=== PATIENT | female | born 1965 | race Caucasian/White ===

== ENCOUNTER 2016-11-08 00:29 | Emergency (ER) | payer MEDICAID, OTHER ==
[~2016-11-08] VITALS: Ht 157.5 cm; Wt 72.6 kg
[~2016-11-08 00:29] MED LIST: ALBU-136 IH; HYDR2TAB44 PO; LEVO0.083 PO
[2016-11-08 00:33] VITALS: BP 171/112
--- NOTE | 2016-11-08 00:40 | NUR ---
PATIENT PRESENTS TO ED WITH DIFFICULTY BREATHING X1 DAY . PT STATES BREATHING TREATMENT AT HOME NOT EFFECTIVE, DENIES N/V/D; SKIN IS PINK/WARM/DRY; AAOX4 WITH EVEN AND STEADY GAIT;STIDOR LUNG SOUND SAILAJA. HR EVEN AND REGULAR, ELEVATED BP NOTED; DENIES COUGHT, DENIES PAIN; PATIENT POSITIONED FOR COMFORT; HOB ELEVATED; BEDRAILS UP X2; BED DOWN. ER MD MADE AWARE OF PT STATUS.
--- NOTE | 2016-11-08 00:53 | NUR ---
PT TAKEN TO OF3
--- NOTE | 2016-11-08 01:09 | NUR ---
Dr. Lockwood evaluating patient at bedside.
[2016-11-08] MEDS ORDERED: methylPREDNISolone SS 125 MG/2 ML VIAL IVP ONE (01:15)
[2016-11-08] MEDS ORDERED: ALBUTEROL SULFATE/IPRATROPIU 3 ML SOL IH ONE (01:25)
--- NOTE | 2016-11-08 01:28 | NUR ---
PT TAKEN TO XRAY
--- NOTE | 2016-11-08 01:28 | NUR ---
PT OFF UNITS VIA WHEELCHAIR FOR CHEST X-RAY.
--- NOTE | 2016-11-08 01:38 | NUR ---
PT RETURN FROM XRAY
[2016-11-08 01:40] LABS: BASOPHILS # (AUTO) 0.5 K/uL (0.00-0.22); BASOPHILS % (AUTO) 4.3 % (0.0-2.0); EOSINOPHILS # (AUTO) 0.1 K/uL (0-0.4); HEMATOCRIT 35.1 % (36-48); HEMOGLOBIN 11.8 g/dL (12.0-16.0); LYMPHOCYTES # (AUTO) 1.5 K/uL (2.5-16.5); LYMPHOCYTES % (AUTO) 12.9 % (20.5-51.1); MEAN CORPUSCULAR HEMOGLOBIN 32 pg (27-31); MEAN CORPUSCULAR HGB CONC 34 g/dL (33-37); MEAN CORPUSCULAR VOLUME 94 fL (80-94); MONOCYTES # (AUTO) 0.6 K/uL (0.8-1.0); MONOCYTES % (AUTO) 4.8 % (1.7-9.3); NEUTROPHILS # (AUTO) 9.2 K/uL (1.8-7.7); PLATELET COUNT (AUTO) 268 K/uL (140-450); RED BLOOD CELL COUNT(AUTO) 3.71 MIL/uL (4.20-5.40); RED CELL DISTRIBUTION WIDTH 12.8 % (11.6-13.7); WHITE BLOOD COUNT (AUTO) 11.9 K/uL (4.8-10.8)
[2016-11-08 01:48] LABS: ALBUMIN 3.7 g/dL (3.4-5.0); ANION GAP 14.1 (8-16); CALCIUM 8.9 mg/dL (8.5-10.1); CARBON DIOXIDE 25.5 mmol/L (21-32); CREATININE 0.7 mg/dL (0.6-1.3); POTASSIUM 3.6 mmol/L (3.5-5.1); TOTAL BILIRUBIN 0.4 mg/dL (0.0-1.0)
--- NOTE | 2016-11-08 02:04 | NUR ---
RT WITH PATIENT
--- NOTE | 2016-11-08 02:17 | NUR ---
PT MOVED TO BED 8
[2016-11-08 02:26] LABS: APPEARANCE,URINE CLEAR (CLEAR); BILIRUBIN,URINE NEGATIVE (NEGATIVE); BLOOD, URINE TRACE-I (NEGATIVE); COLOR,URINE YELLOW (YELLOW); LEUKOCYTE ESTERASE ,URINE NEGATIVE (NEGATIVE); NITRITE, URINE NEGATIVE (NEGATIVE); PROTEIN,URINE NEGATIVE (NEGATIVE); UGLUCOSE NEGATIVE (NEGATIVE); UROBILINOGEN,URINE 0.2 EU/dL (0.2 - 1)
[2016-11-08 02:36] LABS: BACTERIA,URINE FEW /HPF (None Seen); RBC,URINE 0-5 (RARE) /HPF (0-5); SQUAMOUS EPITHELIAL CELL,UR 0-3 (FEW) /LPF (0-3 (FEW)); WBC,URINE 0-5 (RARE) /HPF (0-5)
--- NOTE | 2016-11-08 03:40 | NUR ---
IV removed, catheter intact and site benign. Applied folded 4x4 gauze and tape to stop bleeding.
[2016-11-08 03:48] VITALS: BP 137/89
--- NOTE | 2016-11-08 03:48 | NUR ---
Patient discharged with v/s stable. Written and verbal after care instructions given and explained. Patient alert, oriented and verbalized understanding of instructions. Ambulatory with steady gait. All questions addressed prior to discharge. ID band removed. Patient advised to follow up with PMD. Rx of AUGMENTIN 875MG given. Patient educated on indication of medication including possible reaction and side effects. Opportunity to ask questions provided and answered.
== END 2016-11-08 03:48 | disposition home or self-care (01) ==
LOC: MED 00:29
DX: J04.0 Acute laryngitis (principal); J45.909 Unspecified asthma, uncomplicated; Z85.51 Personal history of malignant neoplasm of bladder; Z85.43 Personal history of malignant neoplasm of ovary; Z88.6 Allergy status to analgesic agent; Z88.5 Allergy status to narcotic agent
CPT/HCPCS: 36415; 71010; 80053; 81001; 81025; 84484; 85025; 93005; 94640; 96374; 99285; J2930; J7620; Q0092

== ENCOUNTER 2016-11-09 20:54 | Emergency (ER) | payer MEDICAID ==
[~2016-11-09] VITALS: Ht 157.5 cm; Wt 71.2 kg
[2016-11-09 21:04] VITALS: BP 159/99
--- NOTE | 2016-11-09 21:48 | NUR ---
TO ER BED 8
--- NOTE | 2016-11-09 21:49 | NUR ---
APATIENT PRESENTS TO ED WITH C/O OF HIGH BLOOD PRESSURE AND AUDIBLE WHEEZING BILAT; PT WAS HERE AT [facility] X 2 DAYS AGO FOR THE SAME COMPLAINT BUT STILL IS HAVING THE SAME SYMPTOMS . PT STATES DENIES N/V/D; SKIN IS PINK/WARM/DRY; AAOX4 WITH EVEN AND STEADY GAIT; LUNGS WHEEZE BL; HR EVEN AND REGULAR; PT DENIES ANY FEVER, CP, SOB, OR COUGH AT THIS TIME; PATIENT STATES PAIN OF 7/10 AT THIS TIME; VSS; PATIENT POSITIONED FOR COMFORT; HOB ELEVATED; BEDRAILS UP X2; BED DOWN. ER MD MADE AWARE OF PT STATUS.
--- NOTE | 2016-11-09 21:57 | NUR ---
Patient being evaluated by physician at bedside.
[2016-11-09] MEDS ORDERED: KETOROLAC 30 MG/ML VIAL IM ONE (22:05)
[2016-11-09] MEDS ORDERED: ALBUTEROL 0.083% 2.5 MG/3 ML NEBU INH ONE (22:05)
[2016-11-09 22:47] VITALS: BP 141/87
--- NOTE | 2016-11-09 22:47 | NUR ---
Patient discharged with v/s stable. Written and verbal after care instructions given and explained. Patient verbalized understanding. Ambulatory with steady gait. All questions addressed prior to discharge. Advised to follow up with PMD.
== END 2016-11-09 22:47 | disposition home or self-care (01) ==
LOC: MED 20:54
DX: R07.89 Other chest pain (principal); R03.0 Elevated blood-pressure reading, without diagnosis of hypertension; J45.909 Unspecified asthma, uncomplicated; Z85.43 Personal history of malignant neoplasm of ovary; Z85.51 Personal history of malignant neoplasm of bladder; Z88.5 Allergy status to narcotic agent; Z88.6 Allergy status to analgesic agent
CPT/HCPCS: 81002; 81025; 93005; 94640; 96372; 99283; J1885; J7613

== ENCOUNTER 2016-11-14 22:02 | Emergency (ER) | payer MEDICAID ==
[~2016-11-14] VITALS: Ht 157.5 cm; Wt 72.6 kg
[2016-11-14 22:08] VITALS: BP 135/88
--- NOTE | 2016-11-15 00:31 | NUR ---
TO ER BED 5
--- NOTE | 2016-11-15 00:50 | NUR ---
CAME AT BEDSIDE TO EVALUATE PT.
[2016-11-15] MEDS ORDERED: KETOROLAC 60 MG/2 ML VIAL IM ONE (00:55)
--- NOTE | 2016-11-15 01:01 | NUR ---
TORADOL 60 MG IM GIVEN VIA RIGHT GLUTEUS JAZMIN MUSCLE FOR PAIN.
--- NOTE | 2016-11-15 01:05 | NUR ---
WENT FOR X-RAYS.
[2016-11-15] MEDS ORDERED: predniSONE 20 MG TAB PO ONE (02:35)
--- NOTE | 2016-11-15 02:40 | NUR ---
DELTASONE 60 MG PO GIVEN ORDERED.
--- NOTE | 2016-11-15 02:47 | NUR ---
BACK AT BEDSIDE TO RE-EVALUATE AND DISCUSS PLAN OF CARE WITH PT.
[2016-11-15 03:02] VITALS: BP 125/90
== END 2016-11-15 02:57 | disposition home or self-care (01) ==
LOC: MED 22:02
DX: J04.0 Acute laryngitis (principal); R00.2 Palpitations; R03.0 Elevated blood-pressure reading, without diagnosis of hypertension; J45.909 Unspecified asthma, uncomplicated; Z85.43 Personal history of malignant neoplasm of ovary; Z85.51 Personal history of malignant neoplasm of bladder; Z88.5 Allergy status to narcotic agent; Z88.6 Allergy status to analgesic agent
CPT/HCPCS: 70360; 71010; 93005; 96372; 99284; J1885; J7512

== ENCOUNTER 2016-11-20 23:07 | Emergency (ER) | payer MEDICAID ==
[~2016-11-20] VITALS: Ht 157.5 cm; Wt 72.1 kg
[~2016-11-20 23:07] MED LIST changes: -ALBU-136 IH; +DILAUDID2 MG PO; -HYDR2TAB44 PO; -LEVO0.083 PO; +PROAIR HFA0.09 MG/Ac IH; +SYNTHROID0.088 MG PO
[2016-11-20 23:20] VITALS: BP 127/67
--- NOTE | 2016-11-20 23:54 | NUR ---
PT TAKEN TO BED 8
--- NOTE | 2016-11-21 00:02 | NUR ---
Dr. Johnson evaluating patient at bedside.
--- NOTE | 2016-11-21 00:03 | NUR ---
PATIENT PRESENTS TO ED C/O SOB. PT STATES BREATHING TREATMENT AND PREDNISONE SHOT HELP HER. PT DENIES N/V/D; SKIN IS PINK/WARM/DRY; AAOX4 WITH EVEN AND STEADY GAIT; LUNGS CLEAR BL; HR EVEN AND REGULAR; PT DENIES ANY FEVER, CP, OR COUGH AT THIS TIME; PATIENT STATES PAIN OF 7/10 AT THIS TIME; VSS; PATIENT POSITIONED FOR COMFORT; HOB ELEVATED; BEDRAILS UP X2; BED DOWN. ER MD MADE AWARE OF PT STATUS.
[2016-11-21] MEDS ORDERED: ALBUTEROL SULFATE/IPRATROPIU 3 ML SOL IH ONE (00:10)
[2016-11-21] MEDS ORDERED: KETOROLAC 30 MG/ML VIAL IM ONE (00:10)
[2016-11-21] MEDS ORDERED: PHENAZOPYRIDINE 100 MG TAB PO ONE (00:10)
--- NOTE | 2016-11-21 00:16 | NUR ---
Respiratory Therapist at bedside for respiratory intervention
[2016-11-21 01:00] VITALS: BP 115/55
--- NOTE | 2016-11-21 01:02 | NUR ---
Pupils equal and reactive to light bilaterally. No facial droop noted. No smile deficit noted. Speech normal for patient. Patient is alert and oriented to person, place, time and event. Bilateral hand urgent care technician equal. Bilateral foot push equal.
== END 2016-11-21 01:15 | disposition home or self-care (01) ==
LOC: MED 23:07
DX: G89.29 Other chronic pain (principal); R07.0 Pain in throat; R07.89 Other chest pain; R06.02 Shortness of breath; M54.2 Cervicalgia; J45.909 Unspecified asthma, uncomplicated; Z86.73 Personal history of transient ischemic attack (TIA), and cerebral infarction without residual deficits; Z85.42 Personal history of malignant neoplasm of other parts of uterus; Z88.5 Allergy status to narcotic agent; Z88.6 Allergy status to analgesic agent; Z98.890 Other specified postprocedural states
CPT/HCPCS: 81002; 81025; 94640; 96372; 99283; J1885; J7620

== ENCOUNTER 2016-11-23 19:05 | Emergency (ER) | payer MEDICAID ==
[~2016-11-23] VITALS: Ht 154.9 cm; Wt 72.6 kg
[~2016-11-23 19:05] MED LIST changes: +ALBU-136 IH; -DILAUDID2 MG PO; +HYDR2TAB44 PO; +LEVO0.083 PO; -PROAIR HFA0.09 MG/Ac IH; -SYNTHROID0.088 MG PO
[2016-11-23 19:16] VITALS: BP 133/84
--- NOTE | 2016-11-23 19:49 | NUR ---
TO ER BED 6
--- NOTE | 2016-11-23 20:01 | NUR ---
PT BIB FAMILY C/O DIFFICULTY BREATHING X 2 DAYS. PT WAS SEEN FOR SAME S/S MANY TIMES. PT STS " I'M GOING TO SEE MY MD IN 2WEEKS. "PT DENIES N/V/D; SKIN IS INTACT, PINK/WARM/DRY; AAOX4, PERRL, WITH EVEN AND STEADY GAIT; LUNGS CLEAR BL, BREATHING UNLABORED; HR EVEN AND REGULAR, BL PERIPHERAL PULSES PRESENT; BS ACTIVE X4, NO TENDERNESS TO PALPATION, NO HEPATOSPLENOMEGALLY PALPATED, RESONANT TO PERCUSSION; PT DENIES ANY FEVER, CP, SOB, OR COUGH AT THIS TIME; PT STATES 4/10 PAIN AT THIS TIME; VSS; PATIENT POSITIONED FOR COMFORT; HOB ELEVATED; BEDRAILS UP X2; BED DOWN.
[2016-11-23] MEDS ORDERED: ALBUTEROL SULFATE/IPRATROPIU 3 ML SOL IH ONE (20:10)
[2016-11-23] MEDS ORDERED: KETOROLAC 30 MG/ML VIAL IM ONE (20:10)
[2016-11-23] MEDS ORDERED: predniSONE 20 MG TAB PO ONE (20:10)
--- NOTE | 2016-11-23 20:31 | NUR ---
MEDS GIVEN NADR AT THIS TIME
[2016-11-23 21:12] VITALS: BP 121/75
== END 2016-11-23 21:12 | disposition home or self-care (01) ==
LOC: MED 19:05
DX: R06.00 Dyspnea, unspecified (principal); R07.0 Pain in throat; J45.909 Unspecified asthma, uncomplicated; Z86.73 Personal history of transient ischemic attack (TIA), and cerebral infarction without residual deficits; Z85.42 Personal history of malignant neoplasm of other parts of uterus
CPT/HCPCS: 93005; 94640; 96372; 99283; J1885; J7512; J7620

== ENCOUNTER 2017-04-11 19:43 | Emergency (ER) | payer MEDICAID ==
[~2017-04-11] VITALS: Ht 157.5 cm; Wt 70.3 kg
[~2017-04-11 19:43] MED LIST changes: -HYDR2TAB44 PO; +HYDR2TAB6 PO
[2017-04-11 19:57] VITALS: BP 120/85
--- NOTE | 2017-04-11 21:09 | NUR ---
PT AMBULATED TO BED 04
[2017-04-11] MEDS ORDERED: ALBUTEROL SULFATE/IPRATROPIU 3 ML SOL IH ONE (21:25)
[2017-04-11 21:28] LABS: BASOPHILS # (AUTO) 0.3 K/uL (0.00-0.22); BASOPHILS % (AUTO) 4.1 % (0.0-2.0); EOSINOPHILS # (AUTO) 0.2 K/uL (0-0.4); EOSINOPHILS % (AUTO) 3.7 % (0.0-4.0); HEMATOCRIT 36.3 % (36-48); HEMOGLOBIN 12.4 g/dL (12.0-16.0); LYMPHOCYTES # (AUTO) 2.1 K/uL (2.5-16.5); LYMPHOCYTES % (AUTO) 31.9 % (20.5-51.1); MEAN CORPUSCULAR HEMOGLOBIN 32 pg (27-31); MEAN CORPUSCULAR HGB CONC 34 g/dL (33-37); MEAN CORPUSCULAR VOLUME 93 fL (80-94); MONOCYTES # (AUTO) 0.5 K/uL (0.8-1.0); MONOCYTES % (AUTO) 7.6 % (1.7-9.3); NEUTROPHILS # (AUTO) 3.6 K/uL (1.8-7.7); NEUTROPHILS % (AUTO) 52.7 % (42.2-75.2); PLATELET COUNT (AUTO) 254 K/uL (140-450); RED CELL DISTRIBUTION WIDTH 12.4 % (11.6-13.7); WHITE BLOOD COUNT (AUTO) 6.7 K/uL (4.8-10.8)
--- NOTE | 2017-04-11 21:39 | NUR ---
51/F c/o chest pain starting today. Pt states she has esophageal stricture. Lungs clear bilaterally. VSS. NSR on the monitor.
[2017-04-11 21:45] LABS: ANION GAP 14.6 (8-16); CREATININE 0.7 mg/dL (0.6-1.3); POTASSIUM 3.6 mmol/L (3.5-5.1)
[2017-04-11 21:50] LABS: ALBUMIN 3.9 g/dL (3.4-5.0); TOTAL BILIRUBIN 0.5 mg/dL (0.0-1.0)
--- NOTE | 2017-04-11 21:56 | NUR ---
RT at bedside giving breathing treatment.
[2017-04-11 21:59] LABS: PROTHROMBIN TIME 11.7 secs (10.8-13.4)
[2017-04-11 22:49] VITALS: BP 138/89
--- NOTE | 2017-04-11 22:50 | NUR ---
Patient discharged with v/s stable. Written and verbal after care instructions given and explained to parent/guardian. Parent/Guardian verbalized understanding. Ambulatory steady gait. All questions addressed prior to discharge. Advised to follow up with PMD.
== END 2017-04-11 22:49 | disposition home or self-care (01) ==
LOC: MED 19:43
DX: K22.2 Esophageal obstruction (principal); J45.909 Unspecified asthma, uncomplicated; Z88.6 Allergy status to analgesic agent; Z88.5 Allergy status to narcotic agent; Z85.42 Personal history of malignant neoplasm of other parts of uterus; Z86.73 Personal history of transient ischemic attack (TIA), and cerebral infarction without residual deficits
CPT/HCPCS: 36415; 71010; 80053; 83880; 84484; 85025; 85610; 85730; 93005; 94640; 99285; J7620

== ENCOUNTER 2019-11-28 12:36 | Emergency (ER) | payer MEDICAID ==
[~2019-11-28] VITALS: Ht 160 cm; Wt 68.5 kg
[2019-11-28 12:48] VITALS: BP 133/65
[2019-11-28 13:43] LABS: BASOPHILS % (AUTO) 0.8 % (0.0-2.0); EOSINOPHILS # (AUTO) 0.2 K/uL (0-0.4); EOSINOPHILS % (AUTO) 3.8 % (0.0-4.0); HEMATOCRIT 35.3 % (36-48); HEMOGLOBIN 12.4 g/dL (12.0-16.0); LYMPHOCYTES # (AUTO) 1.6 K/uL (2.5-16.5); LYMPHOCYTES % (AUTO) 30.1 % (20.5-51.1); MEAN CORPUSCULAR HEMOGLOBIN 33 pg (27-31); MEAN CORPUSCULAR HGB CONC 35 g/dL (33-37); MEAN CORPUSCULAR VOLUME 93.8 fL (80-94); MONOCYTES # (AUTO) 0.5 K/uL (0.8-1.0); MONOCYTES % (AUTO) 9.4 % (1.7-9.3); NEUTROPHILS % (AUTO) 55.9 % (42.2-75.2); PLATELET COUNT (AUTO) 250 K/uL (140-450); RED BLOOD CELL COUNT(AUTO) 3.76 MIL/uL (4.20-5.40); RED CELL DISTRIBUTION WIDTH 13.8 % (11.6-13.7); WHITE BLOOD COUNT (AUTO) 5.3 K/uL (4.8-10.8)
[2019-11-28 14:01] LABS: PROTHROMBIN TIME 9.3 secs (10.8-13.4)
[2019-11-28 14:02] LABS: ALBUMIN 3.5 g/dL (3.4-5.0); ANION GAP 11.1 (8-16); CARBON DIOXIDE 27.6 mmol/L (21-32); CREATININE 0.9 mg/dL (0.6-1.3); POTASSIUM 3.7 mmol/L (3.5-5.1); TOTAL BILIRUBIN 0.6 mg/dL (0.0-1.0)
== END 2019-11-28 14:42 | disposition left against medical advice (07) ==
LOC: MED 12:36
DX: H93.12 Tinnitus, left ear (principal); R07.9 Chest pain, unspecified; J45.909 Unspecified asthma, uncomplicated; I51.0 Cardiac septal defect, acquired; Z79.899 Other long term (current) drug therapy; Z88.5 Allergy status to narcotic agent; Z88.1 Allergy status to other antibiotic agents
CPT/HCPCS: 36415; 71045; 80053; 83880; 84484; 85025; 85379; 85610; 85730; 93005; 99285; Q0092

== ENCOUNTER 2020-01-09 12:36 | Emergency (ER) | payer MEDICAID ==
[~2020-01-09] VITALS: Ht 157.5 cm; Wt 70.8 kg
[2020-01-09 12:40] VITALS: BP 134/86
--- NOTE | 2020-01-09 12:45 | NUR ---
AMBULATED TO BED 12
--- NOTE | 2020-01-09 13:03 | NUR ---
54 Y/O FEMALE C/O CONSTIPATION FOR 1 WEEK. PT STATES SHE HAD A SMALL/PEBBLE-LIKE BM 3 DAYS AGO, WAS STRAINING TO PUSH. C/O LOWER ABD DISCOMFORT X3 DAYS. DOES NOT REPORT ANY VOMITING/COUGH/FEVER. ABD SOFT/ NON DISTENDED. BOWEL SOUNDS NORMOACTIVE IN ALL QUADRANTS. NO CHANGES TO GENITOURINARY. RESP EVEN AND UNLABORED. VSS. AAOX4.
[2020-01-09 13:21] LABS: BASOPHILS % (AUTO) 0.2 % (0.0-2.0); EOSINOPHILS # (AUTO) 0.1 K/uL (0-0.4); EOSINOPHILS % (AUTO) 2.6 % (0.0-4.0); HEMOGLOBIN 12.4 g/dL (12.0-16.0); LYMPHOCYTES # (AUTO) 1.7 K/uL (2.5-16.5); LYMPHOCYTES % (AUTO) 31.9 % (20.5-51.1); MEAN CORPUSCULAR HEMOGLOBIN 33 pg (27-31); MEAN CORPUSCULAR HGB CONC 35 g/dL (33-37); MEAN CORPUSCULAR VOLUME 93.1 fL (80-94); MONOCYTES # (AUTO) 0.5 K/uL (0.8-1.0); MONOCYTES % (AUTO) 8.7 % (1.7-9.3); NEUTROPHILS % (AUTO) 56.6 % (42.2-75.2); PLATELET COUNT (AUTO) 246 K/uL (140-450); RED BLOOD CELL COUNT(AUTO) 3.76 MIL/uL (4.20-5.40); RED CELL DISTRIBUTION WIDTH 13.7 % (11.6-13.7); WHITE BLOOD COUNT (AUTO) 5.3 K/uL (4.8-10.8)
[2020-01-09 13:31] LABS: APPEARANCE,URINE CLEAR (CLEAR); BILIRUBIN,URINE NEGATIVE (NEGATIVE); BLOOD, URINE NEGATIVE (NEGATIVE); COLOR,URINE YELLOW (YELLOW); LEUKOCYTE ESTERASE ,URINE TRACE (NEGATIVE); NITRITE, URINE NEGATIVE (NEGATIVE); UGLUCOSE NEGATIVE (NEGATIVE)
[2020-01-09 13:39] LABS: ALBUMIN 3.6 g/dL (3.4-5.0); ANION GAP 11.2 (8-16); CARBON DIOXIDE 29.4 mmol/L (21-32); CREATININE 0.7 mg/dL (0.6-1.3); POTASSIUM 3.6 mmol/L (3.5-5.1); TOTAL BILIRUBIN 0.7 mg/dL (0.0-1.0)
[2020-01-09 14:39] VITALS: BP 134/86
--- NOTE | 2020-01-09 14:39 | NUR ---
Patient discharged with v/s stable. Written and verbal after care instructions given and explained. Patient alert, oriented and verbalized understanding of instructions. Ambulatory with steady gait. All questions addressed prior to discharge. ID band removed. Patient advised to follow up with PMD. Rx of LEVOTHYROXINE, MIRALAX, MAGNESIUM CITRATE given. Patient educated on indication of medication including possible reaction and side effects. Opportunity to ask questions provided and answered.
== END 2020-01-09 14:39 | disposition home or self-care (01) ==
LOC: MED 12:36
DX: K59.00 Constipation, unspecified (principal); I51.89 Other ill-defined heart diseases; I67.82 Cerebral ischemia; J45.909 Unspecified asthma, uncomplicated; Z88.6 Allergy status to analgesic agent; Z85.9 Personal history of malignant neoplasm, unspecified; Z90.711 Acquired absence of uterus with remaining cervical stump; Z98.890 Other specified postprocedural states; Z79.899 Other long term (current) drug therapy
CPT/HCPCS: 36415; 80053; 81003; 83690; 85025; 99284

== ENCOUNTER 2020-01-10 03:18 | Emergency (ER) | payer MEDICAID ==
[~2020-01-10] VITALS: Ht 165.1 cm; Wt 61.7 kg
[2020-01-10 03:24] VITALS: BP 120/84
--- NOTE | 2020-01-10 03:30 | NUR ---
PT AMBULATED TO BED 7 WITH STEADY GAIT.
[2020-01-10 03:49] LABS: BASOPHILS % (AUTO) 0.7 % (0.0-2.0); EOSINOPHILS # (AUTO) 0.2 K/uL (0-0.4); EOSINOPHILS % (AUTO) 3.4 % (0.0-4.0); HEMATOCRIT 36.6 % (36-48); LYMPHOCYTES # (AUTO) 2.8 K/uL (2.5-16.5); LYMPHOCYTES % (AUTO) 42.2 % (20.5-51.1); MEAN CORPUSCULAR HEMOGLOBIN 33 pg (27-31); MEAN CORPUSCULAR HGB CONC 36 g/dL (33-37); MONOCYTES # (AUTO) 0.5 K/uL (0.8-1.0); MONOCYTES % (AUTO) 7.2 % (1.7-9.3); NEUTROPHILS # (AUTO) 3.1 K/uL (1.8-7.7); NEUTROPHILS % (AUTO) 46.5 % (42.2-75.2); PLATELET COUNT (AUTO) 263 K/uL (140-450); RED BLOOD CELL COUNT(AUTO) 3.89 MIL/uL (4.20-5.40); RED CELL DISTRIBUTION WIDTH 13.6 % (11.6-13.7); WHITE BLOOD COUNT (AUTO) 6.6 K/uL (4.8-10.8)
[2020-01-10 03:55] VITALS: BP 120/84
--- NOTE | 2020-01-10 03:55 | NUR ---
54F PT PRESENTS TO ED WITH C/O RLQ ABDOMINAL 10/10 THAT IS NON RADIATING. STATES FEELING NAUSEA. ALL STARTED X 1 WEEK. UPON ASSESSMENT, ABDOMEN SOFT AND NONTENDER. BOWEL SOUNDS HYPOACTIVE ON RLQ, LLQ. NORMOACTIVE SOUNDS ON RUQ, LUQ. DENIES V/D. REPORTS CONSTIPATION X 1 WEEK. DENIES DYSURIA, HEMATURIA, HEMATOCHEZIA. RR EVEN AND UNLABORED. CBL SOUNDS. PT PLACED FOR COMFORT IN BED WITH HOB ELEVATED, BED LOWEST AND LOCKED, RAILS X 1. PMHX: UTERINE CANCER, HYPERTROPIC OBSTRUCTIVE CARDIOMYOPATHHY, TRANSIENT CEREBRAL ISCHEMIA, GASTRITIS, ASTHMA, HYSTERECTOMY ALLX: VICODIN, MORPHINE. PT NEGATIVE FOR COVID SCREENING. WEARING MASK.
[2020-01-10 04:03] LABS: APPEARANCE,URINE CLEAR (CLEAR); BILIRUBIN,URINE NEGATIVE (NEGATIVE); BLOOD, URINE TRACE-I (NEGATIVE); COLOR,URINE YELLOW (YELLOW); LEUKOCYTE ESTERASE ,URINE 1+ (NEGATIVE); NITRITE, URINE NEGATIVE (NEGATIVE); UGLUCOSE NEGATIVE (NEGATIVE)
--- NOTE | 2020-01-10 04:03 | NUR ---
KAUSHIK POP AT BEDSIDE
[2020-01-10 04:05] LABS: ALBUMIN 3.8 g/dL (3.4-5.0); ANION GAP 13.3 (8-16); CARBON DIOXIDE 28.1 mmol/L (21-32); CREATININE 0.7 mg/dL (0.6-1.3); POTASSIUM 3.4 mmol/L (3.5-5.1); TOTAL BILIRUBIN 0.6 mg/dL (0.0-1.0)
[2020-01-10 04:14] LABS: RBC,URINE 0-5 /HPF (0-5); WBC,URINE 0-5 /HPF (0-5)
--- NOTE | 2020-01-10 04:34 | NUR ---
Patient discharged with v/s stable. Written and verbal after care instructions given and explained. Patient alert, oriented and verbalized understanding of instructions. Ambulatory with steady gait. All questions addressed prior to discharge. ID band removed. Patient advised to follow up with PMD. Rx of FLEET ENEMA given. Patient educated on indication of medication including possible reaction and side effects. Opportunity to ask questions provided and answered.
== END 2020-01-10 04:34 | disposition home or self-care (01) ==
LOC: MED 03:18
DX: K59.00 Constipation, unspecified (principal); J45.909 Unspecified asthma, uncomplicated; Z88.6 Allergy status to analgesic agent; Z88.5 Allergy status to narcotic agent; Z79.899 Other long term (current) drug therapy; Z86.73 Personal history of transient ischemic attack (TIA), and cerebral infarction without residual deficits; Z86.79 Personal history of other diseases of the circulatory system
CPT/HCPCS: 36415; 80053; 81001; 81025; 82150; 83690; 85025; 87086; 99283

== ENCOUNTER 2020-01-10 12:27 | Emergency (ER) | payer MEDICAID ==
[~2020-01-10] VITALS: Ht 154.9 cm; Wt 70.3 kg
[2020-01-10 12:32] VITALS: BP 119/61
--- NOTE | 2020-01-10 12:40 | NUR ---
PT AMBULATED TO BED 2.
--- NOTE | 2020-01-10 12:57 | NUR ---
Pt presents to ED with complaints of constipation. Last bowel movement x 5 days. Patient also reports decrease in appetite. Patient states hasn't eaten solid food x2 days, only having juices or smoothies. Patient denies any fever or chills. Denies N/V. Patient reports taking Colace and Miralax with no improvement.
--- NOTE | 2020-01-10 13:00 | NUR ---
Patient being evaluated by Dr. Kurtz at bedside.
--- NOTE | 2020-01-10 13:15 | NUR ---
PT RESTING IN BED, SIDE RAIL X1
[2020-01-10 13:33] VITALS: BP 119/61
--- NOTE | 2020-01-10 13:34 | NUR ---
Patient discharged with v/s stable. Written and verbal after care instructions given and explained. Patient alert, oriented and verbalized understanding of instructions. Ambulatory with steady gait. All questions addressed prior to discharge. ID band removed. Patient advised to follow up with PMD. Rx of MINERAL OIL,MAGNESIUM CITRATE given. Patient educated on indication of medication including possible reaction and side effects. Opportunity to ask questions provided and answered.
== END 2020-01-10 13:34 | disposition home or self-care (01) ==
LOC: MED 12:27
DX: K59.00 Constipation, unspecified (principal); J45.909 Unspecified asthma, uncomplicated; Z86.73 Personal history of transient ischemic attack (TIA), and cerebral infarction without residual deficits; Z88.6 Allergy status to analgesic agent; Z88.5 Allergy status to narcotic agent; Z79.899 Other long term (current) drug therapy; Z86.79 Personal history of other diseases of the circulatory system
CPT/HCPCS: 81002; 99282

== ENCOUNTER 2020-01-14 02:59 | Emergency (ER) | payer MEDICAID ==
[~2020-01-14] VITALS: Ht 157.5 cm; Wt 68.0 kg
[~2020-01-14 02:59] MED LIST changes: -HYDR2TAB6 PO
[2020-01-14 03:15] VITALS: BP 112/72
--- NOTE | 2020-01-14 03:24 | NUR ---
PT TAKEN TO BED 7
--- NOTE | 2020-01-14 03:30 | NUR ---
54 Y/O FEMALE PRESENTED TO ED C/O CONSTIPATION X 4 DAYS . PT STATES SHE CAME TO THE ED ON 01/10/20 FOR CONSTIPATION AND WAS RX MIRALAX. PT STATES SHE HAS BEEN TAKING THE MEDICATION AND HER LBM WAS ON 01/12/20 , IT WAS DIARRHEA. PT STATES SHE HAS BEEN UNABLE TO HAVE ANOTHER BM SINCE 01/12/20. PT DENIES N/V/F . PT DENIES BLOOD IN STOOL. PT STATES SHE HAS BEEN HAVING A DECREASED APPEPTITE. PT BREATHING EVEN AND UNLABORED. PT RESTING IN BED , LOCKED AND AT LOWEST POSITION, HOB ELEVATED , SIDE RAIL X1. PMH: UTERINE CANCER, CARDIAC ARREST DURING SURGERY , HYPOTHYRODISM RX: LEVOTHYROXINE AX: ACETAMINOPHEN, HYDROCODONE , MORPHINE
--- NOTE | 2020-01-14 03:46 | NUR ---
ERMD AT BEDSIDE FOR EVALUATION.
[2020-01-14 04:09] LABS: BASOPHILS % (AUTO) 0.7 % (0.0-2.0); EOSINOPHILS # (AUTO) 0.2 K/uL (0-0.4); EOSINOPHILS % (AUTO) 2.8 % (0.0-4.0); HEMATOCRIT 35.4 % (36-48); HEMOGLOBIN 12.4 g/dL (12.0-16.0); LYMPHOCYTES # (AUTO) 2.1 K/uL (2.5-16.5); LYMPHOCYTES % (AUTO) 37.4 % (20.5-51.1); MEAN CORPUSCULAR HEMOGLOBIN 33 pg (27-31); MEAN CORPUSCULAR HGB CONC 35 g/dL (33-37); MEAN CORPUSCULAR VOLUME 93.7 fL (80-94); MONOCYTES # (AUTO) 0.5 K/uL (0.8-1.0); MONOCYTES % (AUTO) 9.1 % (1.7-9.3); NEUTROPHILS # (AUTO) 2.8 K/uL (1.8-7.7); PLATELET COUNT (AUTO) 241 K/uL (140-450); RED BLOOD CELL COUNT(AUTO) 3.78 MIL/uL (4.20-5.40); RED CELL DISTRIBUTION WIDTH 13.3 % (11.6-13.7); WHITE BLOOD COUNT (AUTO) 5.6 K/uL (4.8-10.8)
--- NOTE | 2020-01-14 04:10 | NUR ---
BLOOD DRAWN AND GIVEN TO LAB.
--- NOTE | 2020-01-14 04:10 | NUR ---
CONSENT FOR CT WITH CONTRAST OBTAINED.
[2020-01-14 04:29] LABS: ALBUMIN 3.7 g/dL (3.4-5.0); ANION GAP 6.4 (8-16); CARBON DIOXIDE 34.6 mmol/L (21-32); CREATININE 0.8 mg/dL (0.6-1.3); TOTAL BILIRUBIN 0.7 mg/dL (0.0-1.0)
--- NOTE | 2020-01-14 04:36 | NUR ---
PT TAKEN TO CT
--- NOTE | 2020-01-14 04:53 | NUR ---
PT RETURN FROM CT
--- NOTE | 2020-01-14 05:13 | NUR ---
PT SLEEPING IN BED , LOCKED AND IN LOWEST POSITION, AROUSABLE BY VERBAL STIMULATION, HOB ELEVATED, SIDE RAIL X1.
[2020-01-14 05:25] LABS: FREE T4 (FREE THYROXINE) 1.07 ng/dL (0.76-1.46); THYROID STIMULATING HORMONE 9.26 uIU/mL (0.34-3.74)
[2020-01-14 05:40] VITALS: BP 127/62
--- NOTE | 2020-01-14 06:26 | NUR ---
Patient discharged with v/s stable. Written and verbal after care instructions given and explained. Patient alert, oriented and verbalized understanding of instructions. Ambulatory with steady gait. All questions addressed prior to discharge. ID band removed. Patient advised to follow up with PMD. Rx of POLYETHLYENE GLYCOL given. Patient educated on indication of medication including possible reaction and side effects. Opportunity to ask questions provided and answered.
== END 2020-01-14 06:26 | disposition home or self-care (01) ==
LOC: MED 02:59
DX: K59.00 Constipation, unspecified (principal); E03.9 Hypothyroidism, unspecified; K35.80 Unspecified acute appendicitis; K81.0 Acute cholecystitis; K85.90 Acute pancreatitis without necrosis or infection, unspecified; Z90.710 Acquired absence of both cervix and uterus; Z98.890 Other specified postprocedural states
CPT/HCPCS: 36415; 74177; 80053; 83690; 84439; 84443; 85025; 99285; Q9967; 81002

== ENCOUNTER 2020-01-23 02:59 | Emergency (ER) | payer MEDICAID ==
[~2020-01-23] VITALS: Ht 157.5 cm; Wt 70.8 kg
[~2020-01-23 02:59] MED LIST changes: +HYDR2TAB6 PO
[2020-01-23 03:06] VITALS: BP 146/92
--- NOTE | 2020-01-23 03:11 | NUR ---
PT AMBULATED TO BED #11
--- NOTE | 2020-01-23 03:20 | NUR ---
MD LOPEZ AT BEDSIDE
[2020-01-23] MEDS ORDERED: LACTULOSE 20 GM/30 ML UDC PO ONE (03:25)
--- NOTE | 2020-01-23 03:26 | NUR ---
PT C/O CONSTIPATION X THREE DAYS. LAST BM 01/22/20, PT STATES STOOL WAS SOFT. DENIES N/V, NO ABD PAIN, ONLY PAIN IS WHEN STRAINING FOR A BOWEL MOVEMENT. BED IN LOWEST POSITION AND SIDERAIL UP X 1.
[2020-01-23 03:34] VITALS: BP 146/92
--- NOTE | 2020-01-23 03:35 | NUR ---
Patient discharged with v/s stable. Written and verbal after care instructions given and explained. Patient alert, oriented and verbalized understanding of instructions. Ambulatory with steady gait. All questions addressed prior to discharge. ID band removed. Patient advised to follow up with PMD. Rx of LACTULOSE given. Patient educated on indication of medication including possible reaction and side effects. Opportunity to ask questions provided and answered.
== END 2020-01-23 03:35 | disposition home or self-care (01) ==
LOC: MED 02:59
DX: K59.00 Constipation, unspecified (principal); J45.909 Unspecified asthma, uncomplicated; Z88.5 Allergy status to narcotic agent; Z88.6 Allergy status to analgesic agent; Z85.42 Personal history of malignant neoplasm of other parts of uterus; Z98.890 Other specified postprocedural states; Z86.73 Personal history of transient ischemic attack (TIA), and cerebral infarction without residual deficits
CPT/HCPCS: 99283

== ENCOUNTER 2020-01-29 12:32 | Emergency (ER) | payer MEDICAID ==
[~2020-01-29 12:32] MED LIST changes: -HYDR2TAB6 PO
--- NOTE | 2020-01-29 13:00 | NUR ---
PATIENT LEFT WITHOUT BEING TRIAGED. NO FURTHER CARE PROVIDED FOR PATIENT.
--- NOTE | 2020-01-29 13:05 | NUR ---
Jose perales in [facility] - 01/29/20 at 1307 by MED1 PATIENT LEFT WITHOUT BEING SEEN BY . NO FURTHER CARE PROVIDED FOR PATIENT.
== END 2020-01-29 13:00 | disposition left against medical advice (07) ==
LOC: MED 12:32
DX: Z53.21 Procedure and treatment not carried out due to patient leaving prior to being seen by health care provider (principal)

== ENCOUNTER 2020-02-13 02:47 | Emergency (ER) | payer MEDICAID ==
[~2020-02-13] VITALS: Ht 157.5 cm; Wt 71.2 kg
--- NOTE | 2020-02-13 03:00 | NUR ---
AMBULATED TO BED 12 WITH STEADY GAIT
--- NOTE | 2020-02-13 03:02 | NUR ---
ERMD AT BEDSIDE.
[2020-02-13 03:04] VITALS: BP 124/70
--- NOTE | 2020-02-13 03:05 | NUR ---
54 Y/O FEMALE PRESENTED TO ED C/O CONSTIPATION X 1.5 MONTHS. PT HAS BEEN TAKING STOOL SOFTENERS W/ NO RELIEF. PT ABD FLAT, SOFT AND NONTENDER. NORMOACTIVE BOWEL SOUNDS. LBM 1 - 2 DAYS AGO. PT RESTING IN BED, LOCKED AND IN LOWEST POSITION ,HOB ELEVATED, SIDE RAIL X1 . PT RR EVEN AND UNLABORED, A/O X 4 . PMH: UTERINE CANCER, CARDIAC ARREST DURING SURGERY , HYPOTHYRODISM RX: LEVOTHYROXINE AX: ACETAMINOPHEN, HYDROCODONE , MORPHINE
--- NOTE | 2020-02-13 03:20 | NUR ---
PER DR. LOPEZ ORDER, ADMINISTERED CLEANSING ENEMA. PROCEDURE WELL TOLERATED BY PT. NO DISTRESS NOTED AT THIS TIME, WILL CONTINUE TO MONITOR.
--- NOTE | 2020-02-13 03:30 | NUR ---
PT AMBULATED TO RESTROOM W/ STEADY GAIT.
--- NOTE | 2020-02-13 03:45 | NUR ---
PT AMBULATER FROM RESTROOM W/ STEADY GAIT.
--- NOTE | 2020-02-13 03:46 | NUR ---
PT STATES SHE WAS ABLE TO USE RESTROOM AND FEELS RELIEF AFTER ENEMA ADMINISTRATION.
[2020-02-13 03:52] VITALS: BP 124/70
== END 2020-02-13 03:53 | disposition home or self-care (01) ==
LOC: MED 02:47
DX: K59.00 Constipation, unspecified (principal); J45.909 Unspecified asthma, uncomplicated; Z85.42 Personal history of malignant neoplasm of other parts of uterus; Z86.73 Personal history of transient ischemic attack (TIA), and cerebral infarction without residual deficits; Z79.899 Other long term (current) drug therapy; Z88.5 Allergy status to narcotic agent; Z88.6 Allergy status to analgesic agent
CPT/HCPCS: 99284

== ENCOUNTER 2020-02-17 13:26 | Emergency (ER) | payer MEDICAID ==
[~2020-02-17] VITALS: Ht 157.5 cm; Wt 68.9 kg
--- NOTE | 2020-02-17 13:44 | NUR ---
54 Y/O F C/C CONSTIPATION X 2 WEEKS. PER PT LAST BM 2 DAYS AGO, YELLOW MUCUS IN COLOR AND TEXTURE. PT STATES DISCOMFORT IN THE ABDOMINAL AREA 01/29. BS HYPOACTIVE ON ASSESSMENT. PER PT RECURRENT PROBLEM OF CONSTIPATION. ALLERGIES VICODIN, MORPHINE. HX UTERINE CANCER, THYROID DISEASE. RX LEVOTHYROXINE. NO NVD. SIDE RAIL X1.
--- NOTE | 2020-02-17 13:55 | NUR ---
RAD AT BEDSIDE
--- NOTE | 2020-02-17 14:12 | NUR ---
PT RESTING IN BED, SIDE RAIL X1
[2020-02-17 14:33] VITALS: BP 128/78
--- NOTE | 2020-02-17 14:33 | NUR ---
Patient discharged with v/s stable. Written and verbal after care instructions given and explained. Patient alert, oriented and verbalized understanding of instructions. Ambulatory with steady gait. All questions addressed prior to discharge. ID band removed. Patient advised to follow up with PMD. Rx of MIRALAX,SIMETHICONE given. Patient educated on indication of medication including possible reaction and side effects. Opportunity to ask questions provided and answered.
== END 2020-02-17 14:33 | disposition home or self-care (01) ==
LOC: MED 13:26
DX: R14.0 Abdominal distension (gaseous) (principal); I87.8 Other specified disorders of veins; J45.909 Unspecified asthma, uncomplicated; Z85.42 Personal history of malignant neoplasm of other parts of uterus; Z86.73 Personal history of transient ischemic attack (TIA), and cerebral infarction without residual deficits; Z98.890 Other specified postprocedural states; Z79.899 Other long term (current) drug therapy; Z88.5 Allergy status to narcotic agent; Z88.6 Allergy status to analgesic agent
CPT/HCPCS: 74018; 81002; 99283; Q0092